=== PATIENT | female | born 1955 | race Caucasian/White ===

== ENCOUNTER 2017-07-03 09:48 | Emergency (ER) | payer OTHER ==
[2017-07-03 10:11] LABS: BASOPHILS % 0.7 (0.0-1.5); EOSINOPHILS % 1.6 % (0.0-6.8); MEAN CORPUSCULAR HEMOGLOBIN 32.1 pg (28.0-34.0); MEAN CORPUSCULAR VOLUME 93.5 fl (80.0-100.0); MONOCYTES % 4.7 % (0.0-11.0); NEUTROPHILS # 2.6 # k/uL (1.4-7.7)
[2017-07-03 10:24] LABS: eGFR (African) > 60; eGFR (Non-African) > 60
[2017-07-03] MEDS: 0.9 % SODIUM CHLORIDE 500 ML IV ONE (10:40)
[2017-07-03 10:42] LABS: APPEARANCE,URINE Clear (CLEAR); COLOR,URINE Yellow (YELLOW); OCCULT BLOOD,URINE Trace-intact (NEGATIVE); PH URINE 7.5 (5.0 - 8.0); UROBILINOGEN URINE 0.2 Eu (0.2-1.0)
[2017-07-03] MEDS: POTASSIUM CHLORIDE 20 MEQ TABLET.ER PO ONE (10:45)
[2017-07-03] MEDS ORDERED: KETOROLAC TROMETHAMINE 30 MG/1ML VIAL IVP ONE (11:19)
--- NOTE | 2017-07-03 11:22 | ED Physician Documentation ---
Chest Pain - HISTORIAN Historian: patient - HPI Stated Complaint: chest pain Chief Complaint: Chest Pain Additional Information: left sided pectoral pain Onset: days ago (1) Timing: sudden onset Duration: sudden-onset Last known Well Date: 07/02/17 Last Known Well Time: 10:00 Context: rest Severity: moderate Quality: pressure, aching Front/Back of Body, Lg (Color): 1 - pain Chest Pain Radiation: no radiation Chest Pain Signs/Symptoms: denies: nausea, vomiting, diaphoresis, dizziness, dyspnea, tachypnea, tachycardia, hypotension, palpitations, weakness Worsened By: nothing Relieved By: nothing Further Comments: no - ROS CONST: no problems MS/LYMPH: none GI/: none EYES/ENT: none SKIN/ENDO: none NEURO/PSYCH: none - PAST HX AK risk factors: no pertinent history DVT/PE Risk Factors: none TAD/AAA risk factors: none Neuro deficit: none GI disease: none Lung disease: none Surgeries/Procedures: none Immunizations: referred to PCP Allergies/Adverse Reactions: Allergies Allergy/AdvReac Type Severity Reaction Status Date / Time No Known Drug Allergies Allergy Verified 07/03/17 10:12 - SOCIAL HX Smoking History: non-smoker Alcohol Use: none Drug Use: none - FAMILY HX Family HX: none - VITAL SIGNS Vital Signs: Vital Signs Temp Pulse Resp BP Pulse Ox 99.1 F 97 H 20 164/80 100 07/03/17 09:48 07/03/17 09:48 07/03/17 09:48 07/03/17 09:48 07/03/17 09:48 - REVIEWED ASSESSMENTS Nursing Assessment Reviewed: Yes Vitals Reviewed: Yes Progress - Results/Orders Results/Orders: cbc, cmp, ua, bnp, trop, pt/ptt/inr, ekg, cxr ordered - Progress Progress: pt. stable entire time in er. Given 500 cc NS IV, 40 meq kcl p.o. and 800 mg ibuprofen p.o. in ER Critical Care Note - Critical Care Note Total Time (mins): 0 ED Results Lab/Radiology - Lab Results Lab Results: Lab Results 07/03/17 07/03/1707/03/17 10:40 10:05 10:05 WBC RBC Hgb Hct MCV MCH MCHC RDW Plt Count Neut % (Auto) Lymph % (Auto) [place] % (Auto) Eos % (Auto) Baso % (Auto) Neut # (Auto) Lymph # (Auto) [place] # (Auto) Eos # (Auto) Baso # (Auto) Reactive Lymphs % Reactive Lymphs # PT INR APTT Sodium Potassium Chloride Carbon Dioxide BUN Creatinine Estimated Creat Clear Est GFR ( Amer) Est GFR (Non-Af Amer) Glucose Calcium Total Bilirubin AST ALT Alkaline Phosphatase Troponin I < 0.03 ng/mL L ng/mL (0.03-0.06) NT-Pro-B Natriuret Pep 105.2 pg/mL pg/mL (15.0-125.0) Total Protein Albumin Urine Color Yellow (YELLOW) Urine Appearance Clear (CLEAR) Urine pH 7.5 (5.0 - 8.0) Ur Specific Pyote 1.015 (1.010-1.030) Urine Protein Negative mg/dL mg/dL (NEGATIVE) Urine Ketones Negative mg/dL mg/dL (NEGATIVE) Urine Occult Blood Trace-intact (NEGATIVE) Urine Nitrite Negative (NEGATIVE) Urine Bilirubin Negative (NEGATIVE) Urine Urobilinogen 0.2 Eu Eu (0.2-1.0) Ur Leukocyte Esterase Negative (NEGATIVE) Urine Glucose Negative mg/dL mg/dL (NEGATIVE) 07/03/17 07/03/17 07/03/17 10:05 10:05 10:05 WBC 5.40 K/ul K/ul (4.00-12.00) RBC 4.27 M/ul M/ul (3.90-5.20) Hgb 13.7 g/dL g/dL (12.0-16.0) Hct 39.9 % % (34.5-46.5) MCV 93.5 fl fl (80.0-100.0) MCH 32.1 pg pg (28.0-34.0) MCHC 34.3 g/dL g/dL (30.0-36.0) RDW 12.2 % % (11.3-14.3) Plt Count 237 K/mm3 K/mm3 (130-400) Neut % (Auto) 47.4 % % (39.0-79.0) Lymph % (Auto) 43.2 % % (16.0-50.0) [place] % (Auto) 4.7 % % (0.0-11.0) Eos % (Auto) 1.6 % % (0.0-6.8) Baso % (Auto) 0.7 (0.0-1.5) Neut # (Auto) 2.6 # k/uL # k/uL (1.4-7.7) Lymph # (Auto) 2.3 # k/uL # k/uL (0.6-4.0) [place] # (Auto) 0.2 # k/uL # k/uL (0.0-0.9) Eos # (Auto) 0.1 # k/uL # k/uL (0.0-0.6) Baso # (Auto) 0.0 # k/uL # k/uL (0.0-0.5) Reactive Lymphs % 2.5 % % (0.0-5.0) Reactive Lymphs # 0.1 # k/uL # k/uL (0.0-0.8) PT 9.9 Seconds Seconds (9.4-11.6) INR 0.94 (0.9-1.2) APTT 23.6 Seconds L Seconds (24.5-32.8) Sodium 139 mmol/L mmol/L (137-145) Potassium 3.4 mmol/L L mmol/L (3.5-5.1) Chloride 102 mmol/L mmol/L (98-107) Carbon Dioxide 26 mmol/L mmol/L (22-30) BUN 11 mg/dL mg/dL (7-17) Creatinine 0.80 mg/dL mg/dL (0.52-1.04) Estimated Creat Clear 87 Est GFR ( Amer) > 60 (60 - ) Est GFR (Non-Af Amer) > 60 (60 - ) Glucose 106 mg/dL mg/dL (74-106) Calcium 9.3 mg/dL mg/dL (8.4-10.2) Total Bilirubin 0.4 mg/dL mg/dL (0.2-1.3) AST 27 U/L U/L (15-46) ALT 37 U/L U/L (13-69) Alkaline Phosphatase 80 U/L U/L (38-126) Troponin I NT-Pro-B Natriuret Pep Total Protein 7.6 g/dL g/dL (6.3-8.2) Albumin 4.4 g/dL g/dL (3.5-5.0) Urine Color Urine Appearance Urine pH Ur Specific Pyote Urine Protein Urine Ketones Urine Occult Blood Urine Nitrite Urine Bilirubin Urine Urobilinogen Ur Leukocyte Esterase Urine Glucose - Radiology Radiology Impressions: chest x-ray neg - Orders Orders: ED Orders Category Date Time Status Place IV Lock 1T Care 07/03/17 10:10 Active CHEST 1 VIEW [RAD] Routine Exams 07/03/17 Ordered BNP [NT-proBNP] Routine Lab 07/03/17 10:05 Completed CBC/PLATELET/DIFF Routine Lab 07/03/17 10:05 Completed CMP Routine Lab 07/03/17 10:05 Completed PT-INR Routine Lab 07/03/17 10:05 Completed PTT Routine Lab 07/03/17 10:05 Completed TROPONIN I (cTnI) Routine Lab 07/03/17 10:05 Completed URINALYSIS Routine Lab 07/03/17 10:40 Completed 0.9 % Sodium Chloride [Normal Saline] 500 ml Med 07/03/17 10:10 Discontinued IV NOW Ketorolac Tromethamine [Toradol] Med 07/03/17 11:19 Once 30 mg IVP NOW ONE Potassium Chloride [Klor-Con M20] Med 07/03/17 10:40 Discontinued 40 meq PO NOW ONE EKG WITH COMPARISON Routine Ther 07/03/17 Ordered Chest Pain Physical Exam - EXAM General Appearance: no acute distress, alert EENT: eye inspection normal, ENT inspection normal, pharynx normal, no signs of dehydration, SAIRA, no nystagmus, TM's nml Neck: nml inspection, no carotid bruit Respiratory: no resp. distress, chest non-tender, nml breath sounds CVS: reg. rate & rhythm, no murmur, no gallop, no friction rub, pulses full, pulses equal Abdomen: soft, no organomegaly, normal bowel sounds, no abdominal bruit, no distension, non-tender Skin: warm/dry, normal color Extremities: non-tender, normal range of motion, no evidence of injury, no edema Neuro: oriented X3, CN's nml as tested, motor nml, sensation nml, mood/affect nml, cognition normal Discharge Clincal Impression: Hypokalemia, Chest wall pain Referrals: Nikita Scott MD [Primary Care Provider] - 2 Days Comments: discharged with recommendations for over the counter Ibuprofen 800 mg p.o tid prn chest wall pain and Gatorade consumption during outside activity Condition: Stable Disposition: 01 HOME, SELF-CARE Decision to Admit: NO Decision Time: 11:21
[2017-07-03] MEDS ORDERED: IBUPROFEN 400 MG TABLET PO ONE (11:27)
[2017-07-03 11:41] VITALS: BP 125/56
--- NOTE | 2017-07-03 14:28 | Diagnostic Imaging Report ---
ERICKA SPRING [facility] [address] [facility] [address] [address] Report Submission Date: Jul 03, 2017 10:34:27 AM CDT Patient Study Name: SANJU RUSSO Date: Jul 03, 2017 10:16:26 AM CDT Modality Type: CR Gender: F Description: CHEST : 53 Institution: [facility] Physician: ERICKA SPRING Examination: Portable chest History: Chest discomfort Comparison exam: None available Findings: Single view of the chest demonstrates a normal cardiac and mediastinal silhouette. Lung gupta without focal infiltrate. No effusion. Osseous structures are appropriate for age. Impression: No acute process. Electronically signed on Jul 03, 2017 10:34:27 AM CDT by: Gibran RUIZ
== END 2017-07-03 11:38 | disposition home or self-care (01) ==
LOC: ED 09:48
DX: E87.6 Hypokalemia (principal); R07.89 Other chest pain
CPT/HCPCS: 71010; 80053; 81002; 83880; 84484; 85025; 85610; 85730; A9270; J7060; 96360; 99283; S1016